=== PATIENT | male | born 1955 | race Caucasian/White ===

== ENCOUNTER 2022-12-24 17:28 | Emergency (ER) | payer BC ==
[2022-12-24 17:38] VITALS: TEMP 98.3
--- NOTE | 2022-12-24 17:40 | ED ---
General Adult HPI - General Chief complaint: Allergic Reaction Stated complaint: allergic reaction Time Seen by Provider: 12/24/22 17:40 Source: patient Mode of arrival: ambulatory Limitations: no limitations - History of Present Illness Initial comments: Patient presents to the ED with his family for evaluation. Patient states that he ordered some chicken at a restaurant at about 1 PM today, and about 3 hours later, he developed symptoms consistent with an allergic reaction. Patient states that he has developed a pruritic rash to his face and upper chest. Patient states that the restaurant at which he ate also serves seafood, and he states that he has an allergy to seafood. Patient states that he took 3 Benadryl 25 mg tabs about 30 minutes ago. Patient denies having any pain, fever or chills, headache, tongue/lip/throat swelling, dysphagia, dyspnea, dizziness, chest pain, palpitations, abdominal pain, nausea or vomiting, or any other s ymptoms or complaints. - Related Data Home Medications Medication Instructions Recorded Confirmed Acetaminophen [Tylenol 8 Hour] 1,300 mg PO Q8H PRN 12/24/22 12/24/22 Albuterol Sulfate [Albuterol 2 puff PO RT-Q6H PRN 12/24/22 12/24/22 Sulfate Hfa] Aspirin 325 mg PO DAILY 12/24/22 12/24/22 Azelastine HCl [Astepro] 2 spray NASAL BID 12/24/22 12/24/22 Budesonide/Formoterol Fumarate 2 puff INHALATION RT-BID 12/24/22 12/24/22 [Symbicort 160-4.5 Mcg Inhaler] Clopidogrel [Plavix] 75 mg PO DAILY 12/24/22 12/24/22 Dapagliflozin Propanediol [Farxiga] 10 mg PO DAILY 12/24/22 12/24/22 EPINEPHrine (Auto Inject) [Epipen] 0.3 mg IM ONCE PRN 12/24/22 12/24/22 Famotidine [Pepcid] 20 mg PO BID 12/24/22 12/24/22 Fluticasone Nasal Regent [Flonase 2 spray EA NOSTRIL HS 12/24/22 12/24/22 Nasal Regent] Ipratropium/Albuter 20-100Mcg 1 puff INHALATION RT-BID 12/24/22 12/24/22 [Combivent Respimat 20-100Mcg Inhaler] Isosorbide Mononitrate ER [Imdur] 60 mg PO DAILY 12/24/22 12/24/22 Loratadine-Pseudoeph 10-240 mg 1 tab PO DAILY 12/24/22 12/24/22 [Claritin-D 24 Hour] Metoprolol Succinate (ER) [Toprol 100 mg PO DAILY 12/24/22 12/24/22 Xl] Montelukast [Singulair] 10 mg PO HS 12/24/22 12/24/22 Nitroglycerin Sl Tabs [Nitrostat] 0.4 mg SUBLINGUAL Q5M PRN 12/24/22 12/24/22 Ranolazine [Ranexa] 1,000 mg PO Q12HR 12/24/22 12/24/22 Rosuvastatin Calcium 5 mg PO DAILY 12/24/22 12/24/22 Tamsulosin HCl [Flomax] 0.4 mg PO HS 12/24/22 12/24/22 guaiFENesin-DM 600/30MG [Mucinex 2 tab PO Q12HR PRN 12/24/22 12/24/22 Dm] Allergies Allergy/AdvReac Type Severity Reaction Status Date / Time bee venom protein (honey bee) Allergy Rash/Hives Verified 12/24/22 18:22 Iodinated Contrast Media Allergy Rash/Hives Verified 12/24/22 18:22 shellfish derived Allergy Rash/Hives Verified 12/24/22 18:22 Tetracyclines Allergy Nausea & Verified 12/24/22 18:22 Vomiting Review of Systems ROS Statement: Those systems with pertinent positive or pertinent negative responses have been documented in the HPI. ROS Other: All systems not noted in ROS Statement are negative. Past Medical History Past Medical History: Asthma, Coronary Artery Disease (CAD) History of Any Multi-Drug Resistant Organisms: None Reported Past Surgical History: Cholecystectomy, Heart Catheterization With Stent, Hernia Repair, Orthopedic Surgery Additional Past Surgical History / Comment(s): UB3,rt knee Past Psychological History: No Psychological Hx Reported Smoking Status: Former smoker Past Alcohol Use History: Occasional Past Drug Use History: None Reported General Exam Limitations: no limitations General appearance: alert, in no apparent distress Head exam: Present: normocephalic Eye exam: Present: normal appearance, PERRL ENT exam: Present: normal oropharynx, mucous membranes moist, other (No evidence of oral/pharyngeal swelling or angioedema) Neck exam: Present: other (Trachea is in midline) Respiratory exam: Present: normal lung sounds bilaterally. Absent: respiratory distress, wheezes, rales, rhonchi, stridor Cardiovascular Exam: Present: regular rate, normal rhythm, normal heart sounds, other (Normal radial pulses bilaterally) GI/Abdominal exam: Present: soft. Absent: distended, tenderness, guarding Neurological exam: Present: alert, oriented X3 Psychiatric exam: Present: normal affect, normal mood Skin exam: Present: warm, dry, intact, other (An urticarial rash is noted to the patient's face and upper chest consistent with allergic reaction) Course Vital Signs 12/24/22 12/24/22 17:29 19:09 Temperature 98.3 F Pulse Rate 75 63 Respiratory 20 12 Rate Blood Pressure 116/65 133/87 O2 Sat by Pulse 96 94 L Oximetry - Reevaluation(s) Reevaluation #1: 12/24/22 19:38 Patient reports that his rash/pruritus have improved since coming to the ED. Patient's rash appears improved on examination. Patient continues to be breathing comfortably with a normal room air oxygen saturation and clear breath sounds bilaterally. Patient continues to have no evidence of oral or pharyngeal swelling or angioedema on exam. Patient was counseled about ALLERGIC reactions, and he feels comfortable being discharged home with his family at this time. Patient was instructed to continue taking Benadryl as needed/as directed. Patient states that he has epi-pens in his vehicle, as well as in his residence, should he need to take one. Medical Decision Making - Medical Decision Making Was pt. sent in by a medical professional or institution (, PA, OPERATING ENGINEER APPRENTICE, urgent care, hospital, or long term...) When possible be specific @ -No Did you speak to anyone other than the patient for history (EMS, parent, family, police, friend...)? What history was obtained from this source @ -No Did you review nursing and triage notes (agree or disagree)? Why? @ -I reviewed and agree with nursing and triage notes Were old charts reviewed (outside hosp., previous admission, EMS record, old EKG, old radiological studies, urgent care reports/EKG's, long term records)? Report findings @ -No old charts were reviewed Differential Diagnosis (chest pain, altered mental status, abdominal pain women, abdominal pain men, vaginal bleeding, weakness, fever, dyspnea, syncope, headache, dizziness, GI bleed, back pain, seizure, CVA, palpatations, mental health, musculoskeletal)? @ -ALLERGIC reaction, urticaria, rash, anaphylaxis, angioedema EKG interpreted by me (3pts min.). @ -None done X-rays interpreted by me (1pt min.). @ -None done CT interpreted by me (1pt min.). @ -None done U/S interpreted by me (1pt. min.). @ -None done What testing was considered but not performed or refused? (CT, X-rays, U/S, labs)? Why? @ -None What meds were considered but not given or refused? Why? @ -None Did you discuss the management of the patient with other professionals (professionals i.e. , PA, OPERATING ENGINEER APPRENTICE, lab, RT, psych nurse, social service director, sample tailor, teacher, fire management officer, geriatric case manager)? Give summary @ -No Was smoking cessation discussed for >3mins.? @ -No Was critical care preformed (if so, how long)? @ -No Were there social determinants of health that impacted care today? How? (Homelessness, low income, unemployed, alcoholism, drug addiction, transportation, low edu. Level, literacy, decrease access to med. care, fdc, rehab)? @ -No Was there de-escalation of care discussed even if they declined (Discuss DNR or withdrawal of care, Hospice)? DNR status @ -No What co-morbidities impacted this encounter? (DM, HTN, Smoking, COPD, CAD, Cancer, CVA, ARF, Chemo, Hep., AIDS, mental health diagnosis, sleep apnea, morbid obesity)? @ -None Was patient admitted / discharged? Hospital course, mention meds given and route, prescriptions, significant lab abnormalities, going to OR and other pertinent info. @ -Patient has been observed in the ED for over 2 hours now without development of any symptoms of anaphylaxis, respiratory difficulty or angioedema. Patient reports improvement in his symptoms, and his urticarial rash has improved on exam. Will discharge patient home with his family at this time. Undiagnosed new problem with uncertain prognosis? @ -No Drug Therapy requiring intensive monitoring for toxicity (Heparin, Nitro, Insulin, Cardizem)? @ -No Were any procedures done? @ -No Diagnosis/symptom? @ -ALLERGIC reaction Acute, or Chronic, or Acute on Chronic? @ -Acute Uncomplicated (without systemic symptoms) or Complicated (systemic symptoms)? @ -Uncomplicated Side effects of treatment? @ -No Exacerbation, Progression, or Severe Exacerbation? @ -No Poses a threat to life or bodily function? How? (Chest pain, [place], [place], pneumonia, PE, COPD, DKA, ARF, appy, cholecystitis, CVA, Diverticulitis, Homicidal, Suicidal, threat to staff... and all critical care pts) @ -Although severe ALLERGIC reactions can be life-threatening, I do not suspect that the patient is having a severe reaction at this time. Disposition Clinical Impression: Allergic reaction Disposition: HOME SELF-CARE Condition: Stable Instructions (If sedation given, give patient instructions): Urticaria (ED), General Allergic Reaction (ED) Additional Instructions: Return to the ER immediately should you develop tongue/lip/throat swelling, trouble breathing or swallowing, feeling dizzy or faint, or new or worsening symptoms. Follow up closely with your primary care provider. Is patient prescribed a controlled substance at d/c from ED?: No Referrals: Nonstaff,Physician [Primary Care Provider] - 1-2 days Time of Disposition: 19:45
[2022-12-24] MEDS ORDERED: methylPREDNISolone SOD SUCCI 125 MG/2 ML VIAL IV STA (17:49)
[2022-12-24] MEDS ORDERED: FAMOTIDINE 20 MG/2 ML VIAL IV STA (17:49)
[2022-12-24 19:13] VITALS: BP 133/87; PULSE 63
[2022-12-24 20:11] VITALS: RESP 15
== END 2022-12-24 20:11 | disposition home or self-care (01) ==
LOC: EC 17:28
DX: T78.40XA Allergy, unspecified, initial encounter (principal); I25.10 Atherosclerotic heart disease of native coronary artery without angina pectoris; J45.909 Unspecified asthma, uncomplicated; Z79.51 Long term (current) use of inhaled steroids; Z79.82 Long term (current) use of aspirin; Z79.899 Other long term (current) drug therapy; Z88.1 Allergy status to other antibiotic agents; Z91.013 Allergy to seafood; Z91.030 Bee allergy status; Z91.041 Radiographic dye allergy status; Z87.891 Personal history of nicotine dependence
CPT/HCPCS: 99283; 96374; 96375; J2930